=== PATIENT | male | born 1950 | race Caucasian/White ===

== ENCOUNTER 2017-07-14 14:48 | Outpatient (CLI) | payer BC | END 2017-07-14 14:49 | disposition home or self-care (01) | LOC: CTENTCT 14:48 | PROVIDERS: ATTEND Otolaryngology Plastic Surgery within the Head & Neck | DX: J32.9 Chronic sinusitis, unspecified (principal) | CPT/HCPCS: 70486 ==

== ENCOUNTER 2018-08-27 08:22 | Emergency (ER) | payer BC, MEDICARE | END 2018-08-27 08:50 | disposition home or self-care (01) | LOC: SCSER 08:22 | DX: J40 Bronchitis, not specified as acute or chronic (principal); I10 Essential (primary) hypertension; E78.00 Pure hypercholesterolemia, unspecified; F17.220 Nicotine dependence, chewing tobacco, uncomplicated; Z79.899 Other long term (current) drug therapy | CPT/HCPCS: 99283 ==

== ENCOUNTER 2019-01-23 19:15 | Emergency (ER) | payer MEDICARE ==
[2019-01-23] MEDS ORDERED: Lidocaine 1% PF 5 ML VIAL ONE (19:32)
[2019-01-23] MEDS ORDERED: Bacitracin Zinc 1 Packet ONE (19:59)
== END 2019-01-23 20:04 | disposition home or self-care (01) ==
LOC: SCSER 19:15
DX: S61.210A Laceration without foreign body of right index finger without damage to nail, initial encounter (principal); I10 Essential (primary) hypertension; E78.00 Pure hypercholesterolemia, unspecified; Z87.891 Personal history of nicotine dependence; W22.8XXA Striking against or struck by other objects, initial encounter
CPT/HCPCS: 12002; J2001